=== PATIENT | female | born 1995 | race American Indian/Alaskan Native ===

== ENCOUNTER 2019-10-22 22:26 | Emergency (ER) | payer SELFPAY ==
[2019-10-22 22:34] VITALS: BP 118/68
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
== END 2019-10-23 00:10 | disposition left against medical advice (07) ==
LOC: ED 22:26
DX: H57.89 Other specified disorders of eye and adnexa (principal)
CPT/HCPCS: 99282